=== PATIENT | female | born 1990 | race American Indian/Alaskan Native ===

== ENCOUNTER 2017-09-01 16:46 | Emergency (ER) | payer OTHER ==
[2017-09-01 16:48] VITALS: BMI 29.2
[2017-09-01 16:51] VITALS: BP 99/68; PULSE 67; RESP 18; TEMP 98.1; O2SAT 100
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
== END 2017-09-01 17:50 | disposition home or self-care (01) ==
LOC: ED 16:46
DX: S16.1XXA Strain of muscle, fascia and tendon at neck level, initial encounter (principal); V49.9XXA Car occupant (driver) (passenger) injured in unspecified traffic accident, initial encounter; M54.9 Dorsalgia, unspecified; F17.210 Nicotine dependence, cigarettes, uncomplicated
CPT/HCPCS: 96372; 99283; J1885